=== PATIENT | male | born 1995 | race Caucasian/White ===

== ENCOUNTER 2021-02-14 12:22 | Emergency (ER) | payer OTHER ==
[~2021-02-14] VITALS: Ht 165.1 cm; Wt 63.6 kg
[2021-02-14 13:11] VITALS: BP 145/84
== END 2021-02-14 14:45 | disposition home or self-care (01) ==
LOC: EMS 12:22
DX: Z20.822 Contact with and (suspected) exposure to COVID-19 (principal); F17.210 Nicotine dependence, cigarettes, uncomplicated; F12.90 Cannabis use, unspecified, uncomplicated
CPT/HCPCS: 99283; U0003

== ENCOUNTER 2025-04-08 05:01 | Emergency (ER) | payer OTHER ==
[~2025-04-08] VITALS: Ht 167.6 cm; Wt 68.2 kg
[2025-04-08 05:05] VITALS: TEMP 98
[2025-04-08 05:27] VITALS: BP 138/84; PULSE 116; RESP 18; O2SAT 93
[2025-04-08] MEDS ORDERED: LIDOCAINE 1% 20 ML VIAL SQ ONE (06:30)
[2025-04-08] MEDS ORDERED: CEPH-558 PO (06:38)
[2025-04-08] MEDS ORDERED: IBUP-1492 PO (06:38)
[2025-04-08] MEDS: IBUPROFEN 600 MG TABLET PO ONE (06:51)
[2025-04-08] MEDS: LIDOCAINE 1% 10 ML VIAL SQ ONE (06:52)
== END 2025-04-08 06:58 | disposition home or self-care (01) ==
LOC: EMS 05:02
DX: S01.01XA Laceration without foreign body of scalp, initial encounter (principal); F12.90 Cannabis use, unspecified, uncomplicated; F17.210 Nicotine dependence, cigarettes, uncomplicated; V21.01XA Electric (assisted) bicycle driver injured in collision with pedal cycle in nontraffic accident, initial encounter; Y93.89 Activity, other specified; Y92.89 Other specified places as the place of occurrence of the external cause; Y99.8 Other external cause status
CPT/HCPCS: 12002; 99283; J3490